=== PATIENT | female | born 1935 | race Caucasian/White ===

== ENCOUNTER → 2018-10-22 | Outpatient (CLI) | payer MEDICARE ==
--- NOTE | 2018-10-22 14:26 | REP ---
Chest two views HISTORY: Emphysema Comparison: None The lungs are hyperinflated. An increase in interstitial markings is present in the lungs. The cardiac silhouette is enlarged. The pulmonary vasculature is normal in appearance. The bony structure is intact. IMPRESSION: 1. Chronic interstitial fibrosis. 2. Cardiomegaly. Electronically Signed by Mingo Singh MD 10/22/2018 02:17 P
== END ==
LOC: M SMT 13:07
PROVIDERS: ATTEND Internal Medicine Pulmonary Disease
DX: I51.7 Cardiomegaly (principal); J84.10 Pulmonary fibrosis, unspecified